=== PATIENT | male | born 1990 | race Caucasian/White ===

== ENCOUNTER 2018-04-22 09:56 | Emergency (ER) | payer OTHER ==
[~2018-04-22] VITALS: Wt 129.2 kg
[~2018-04-22 09:56] MED LIST: AZIT250T PO; BACTDS PO; CEPH-443 PO; CLIN300C10 PO; DOCU-144 PO; DOXY100T21 PO; ERYT250T55 PO; PSYL PO
--- NOTE | 2018-04-22 10:51 | ERD ---
ER Documentation Chief Complaint Chief Complaint EPIGASTRIC PAIN,GERD, SINCE YESTERDAY AFTER SPICY FOOD HPI 28-year-old male, producing healthy, presents the emergency department, complaining of 3 days with persistent burning epigastric pain after eating spicy food. The patient has tried some [id number] medication without im provement of the symptoms. He denies fevers, no chills, no nausea or vomiting, no diarrhea or constipation. ROS All systems reviewed and are negative except as per history of present illness. Medications Home Meds Active Scripts Hydrocodone/Acetaminophen ([place] 5-325 Tablet) 1 Each Tablet, 1 TAB PO BID PRN for PAIN for 3 Days, #6 TAB Prov:CLARIBEL SILVA MD 04/22/18 Ranitidine Hcl* (Zantac*) 150 Mg Tablet, 150 MG PO BID PRN for EPIGASTRIC PAIN, #14 TAB Prov:CLARIBEL SILVA MD 04/22/18 Amoxicillin/Potassium Clav (Amox-Clav 875-125 mg Tablet) 875-125 mg Tab, 1 TAB PO BID, #14 TAB Prov:CLARIBEL SILVA MD 04/22/18 Azithromycin* (Zithromax*) 250 Mg Tablet, 250 MG PO .ZPACK DIRECTED, #6 TAB TAKE 500 MG (2 TABS) THE FIRST DAY THEN 250 MG (1 TAB) DAYS 2-5 Prov:TARIK PANCHAL 03/13/16 Docusate Sodium* (Colace*) 100 Mg Capsule, 100 MG PO BID, #30 CAP Prov:NOAM ALBERT PA-C 10/24/15 Psyllium Husk (with sugar) (Metamucil Powder) 2,730 Gm Powder, 2730 GM PO BID, #1 EA Prov:NOAM ALBERT PA-C 10/24/15 Doxycycline Monohydrate* (Doxycycline Monohydrate*) 100 Mg Tablet, 100 MG PO BID, #7 TAB Prov:SANTOS WHITNEY PA-C 08/30/15 Sulfamethoxazole-Trimethoprim* (Bactrim* DS) 800-160 Mg Tab, 1 TAB PO BID for 7 Days, TAB Prov:NOAM ALBERT PA-C 08/27/15 Cephalexin* (Keflex*) 500 Mg Capsule, 500 MG PO QID for 7 Days, CAP Prov:NOAM ALBERT PA-C 08/27/15 Erythromycin Stearate (Erythromycin Stearate) 250 Mg Tablet, 250 MG PO QID for 10 Days, TAB Prov:ALFREDO CURRIE NP 07/15/15 Clindamycin Hcl* (Clindamycin Hcl*) 300 Mg Capsule, 300 MG PO TID for 10 Days, CAP Prov:JUAN F MOORE 05/02/15 Cephalexin* (Keflex*) 500 Mg Capsule, 500 MG PO QID for 7 Days, CAP Prov:VINICIO DOUGLAS PA-C 03/15/15 Sulfamethoxazole-Trimethoprim* (Bactrim* DS) 800-160 Mg Tab, 1 TAB PO BID for 7 Days, TAB Prov:VINICIO DOUGLAS PA-C 03/15/15 Allergies Allergies: Coded Allergies: No Known Allergy (Unverified , 03/13/16) PMhx/Soc History of Surgery: No Anesthesia Reaction: No Hx Neurological Disorder: No Hx Respiratory Disorders: No Hx Cardiac Disorders: No Hx Psychiatric Problems: No Hx Miscellaneous Medical Probl: No Hx Alcohol Use: Yes (SOCIALLY) Hx Substance Use: No Hx Tobacco Use: No FmHx Family History: diabetes Physical Exam Vitals Vital Signs Date Temp Pulse Resp B/P (MAP) Pulse Ox O2 O2 Flow FiO2 Time Delivery Rate 04/22/18 100.4 100 18 120/73 18 Room Air 16:12 (89) 04/22/18 98.2 76 18 135/75 99 09:57 (95) Physical Exam Const: No acute distress Head: Atraumatic Eyes: Normal Conjunctiva ENT: Normal External Ears, Nose and Mouth. Neck: Full range of motion. No meningismus. Resp: Clear to auscultation bilaterally Cardio: Regular rate and rhythm, no murmurs Abd: Soft, non tender, non distended. Normal bowel sounds Skin: No petechiae or rashes Back: No midline or flank tenderness Ext: No cyanosis, or edema Neur: Awake and alert Psych: Normal Mood and Affect Result Diagram: 04/22/18 1114 04/22/18 1114 Results 24 hrs Laboratory Tests Test 04/22/18 11:09 04/22/18 11:14 04/22/18 14:46 Bedside Urine pH (LAB) 6.0 Bedside Urine Protein (LAB) 1+ Bedside Urine Glucose (UA) Negative Bedside Urine Ketones (LAB) 2+ Bedside Urine Blood Negative Bedside Urine Nitrite (LAB) Negative Bedside Urine Leukocyte Esterase Negative (L White Blood Count 13.0 10^3/ul Red Blood Count 5.48 10^6/ul Hemoglobin 16.7 g/dl Hematocrit 49.4 % Mean Corpuscular Volume 90.1 fl Mean Corpuscular Hemoglobin 30.5 pg Mean Corpuscular 33.8 g/dl Hemoglobin Concent Red Cell Distribution Width 13.0 % Platelet Count 193 10^3/UL Mean Platelet Volume 10.6 fl Immature Granulocytes % 0.300 % Neutrophils % 58.9 % Lymphocytes % 32.2 % Monocytes % 7.0 % Eosinophils % 1.1 % Basophils % 0.5 % Nucleated Red Blood Cells % 0.0 /100WBC Immature Granulocytes # 0.040 10^3/ul Neutrophils # 7.6 10^3/ul Lymphocytes # 4.2 10^3/ul Monocytes # 0.9 10^3/ul Eosinophils # 0.1 10^3/ul Basophils # 0.1 10^3/ul Nucleated Red Blood Cells # 0.0 10^3/ul Sodium Level 144 mmol/L Potassium Level 4.2 mmol/L Chloride Level 100 mmol/L Carbon Dioxide Level 31 mmol/L Anion Gap 13 Blood Urea Nitrogen 15 mg/dl Creatinine 0.83 mg/dl Est Glomerular Filtrat Rate mL/min > 60 mL/min Glucose Level 112 mg/dl Calcium Level 9.9 mg/dl Total Bilirubin 2.3 mg/dl Direct Bilirubin 0.00 mg/dl Indirect Bilirubin 2.3 mg/dl Aspartate Amino Transf (AST/SGOT) 167 IU/L Alanine 408 IU/L Aminotransferase (ALT/SGPT) Alkaline Phosphatase 103 IU/L Total Protein 7.8 g/dl Albumin 4.8 g/dl Globulin 3.00 g/dl Albumin/Globulin Ratio 1.60 Lipase 1210 U/L 789 U/L Current Medications Medications Dose Sig/Romulo Start Time Status Last (Trade) Ordered Route PRN Stop Time Admin Dose Reason Admin 650 mg ONCE ONCE 04/22/18 DC 04/22/18 Acetaminophen PO 11:00 11:17 (Tylenol 04/22/18 11:01 Tab) Famotidine 20 mg ONCE ONCE 04/22/18 DC 04/22/18 (Pepcid) PO 11:00 11:17 04/22/18 11:01 Piperacillin 100 ml @ ONCE ONCE 04/22/18 DC 04/22/18 Sod/ 200 mls/hr IVPB 12:30 12:41 Tazobactam 04/22/18 12:59 Sod Sodium 1,000 ml @ Q1H ONCE 04/22/18 DC 04/22/18 Chloride 1,000 mls/hr IV 12:30 12:41 04/22/18 13:29 Iohexol 150 ml STK-MED 04/22/18 DC 04/22/18 (Omnipaque ONCE .ROUTE 12:50 13:04 300mg/ ml) 04/22/18 12:51 Sodium 100 ml @ ud STK-MED 04/22/18 DC 04/22/18 Chloride ONCE .ROUTE 12:50 13:04 04/22/18 12:51 IV Flush 10 ml STK-MED 04/22/18 DC 04/22/18 (NS 10 ml) ONCE .ROUTE 12:50 13:04 04/22/18 12:51 Sodium 1,000 ml @ Q1H ONCE 04/22/18 DC 04/22/18 Chloride 1,000 mls/hr IV 14:00 13:54 04/22/18 14:59 DIAGNOSTIC IMAGING REPORT Patient: TERRY NASSAR : 1990 Age: 28 Sex: M MR #: [id number] DOS: 04/22/18 1219 Ordering MD: CLARIBEL SILVA MD Location: [facility] Room/Bed: PROCEDURE: CT Abdomen and pelvis with contrast. CLINICAL INDICATION: Pancreatitis. Abdominal pain. TECHNIQUE: CT scan of the abdomen and pelvis with contrast was performed on a multidetector high-resolution CT scan. The patient was scanned following the uncomplicated intravenous administration of 90 ml Omnipaque-300. Coronal and sagittal reformatted images were obtained from the axial source images. Standard CT of the abdomen pelvis with contrast protocols were performed. The total exam CTDI equals 23.89 mGy and the total exam DLP equals 1646.93 mGy- cm. One or more of the following dose reduction techniques were used: - Automated exposure control. - Adjustment of the mA and/or kV according to patient size. Use of iterative reconstruction technique. Dicom images are available COMPARISON: None. FINDINGS: The pancreas is diffusely enlarged with indistinctness of the pancreatic margins and mild to moderate peripancreatic induration/stranding with fluid extending into the right and left anterior pararenal spaces and posterior mesentery caudal to the level the pancreas consistent with acute pancreatitis. No focal pancreatic lesion. No pancreatic duct dilation. Small free fluid posterior to the urinary bladder. Negative for localized fluid collection to suggest abscess. Negative free air. Prominent but nonspecific left periaortic and right mesenteric lymph nodes. No abdominal/pelvic lymphadenopathy. Numerous gallstones within a partially contracted gallbladder. No definite gallbladder wall thickening or pericholecystic fluid. No biliary ductal dilation. Normal size liver with diffuse hepatic fatty infiltration but no focal hepatic lesions. Spleen and adrenal glands are unremarkable. Kidneys are normal in size without calcified calculi, hydronephrosis or intra renal masses bilaterally. No evidence of ureteral calcified calculi or dilatation. Contracted otherwise unremarkable urinary bladder. Prostate unremarkable. Stomach large bowel and appendix unremarkable. Short segment prominent fluid filled loops of small bowel in the central mid to lower right abdomen consistent with ileus. Small bowel otherwise unremarkable. Mild bibasilar subsegmental atelectasis. Aorta unremarkable. Abdominal pelvic wall unremarkable. Osseous structures unremarkable without acute osseous findings are osteoblastic/osteolytic lesions. IMPRESSION: 1. Acute pancreatitis as described above. No pancreatic focal lesion or duct dilation demonstrated. 2. Numerous gallstones and a partially contracted gallbladder without gallbladder wall thickening, pericholecystic fluid or biliary ductal dilation. 3. Small free fluid posterior to the urinary bladder. Negative free air abscesses or lymphadenopathy. 4. Hepatic fatty infiltration. 5. No gastrointestinal disease. 6. No calcified urinary calculi or obstructive uropathy. RPTAT:AAJJ Physician [place] Date Time Electronically viewed and signed by Physician [place] on 04/22/2018 13:16 BM/ CC: CLARIBEL SILVA MD [id number] DIAGNOSTIC IMAGING REPORT Patient: TERRY NASSAR : 1990 Age: 28 Sex: M MR #: [id number] DOS: 04/22/18 1219 Ordering MD: CLARIBEL SILVA MD Location: [facility] Room/Bed: PROCEDURE: US Abdomen. CLINICAL INDICATION: Pancreatitis TECHNIQUE: Multiple real-time images were acquired of the patient's abdomen and retroperitoneum utilizing a high resolution transducer. COMPARISON: None FINDINGS: The liver is of normal size and contour with no mass or intrahepatic ductal dilatation. There is fatty infiltration. Portal and hepatic vein are patent on color flow Doppler imaging. The common bile duct measures 3.8 millimeter in transverse diameter. multiple gallstones are identified within the contracted gallbladder. Gallbladder wall is not thickened and no abnormal pericholecystic fluid collection is seen. No sonographic Oswald's sign was elicited during this exam. There is no ascites. The pancreas is not well visualized. The right kidney measures 12.3 cm in length. No hydronephrosis, calculus or mass is present. There is no evidence of abdominal aortic aneurysm or caval thrombosis. IMPRESSION: Multiple stones within the contracted gallbladder. No evidence of cholecystitis or biliary obstruction. Poor visualization of pancreas. .Daryl Hyde MD, MD Date Time Electronically viewed and signed by .Daryl Hyde MD, MD on 04/22/2018 13:55 .A/ CC: CLARIBEL SILVA MD [phone] Procedures/MDM Vital signs stable. Differential diagnosis include but not limited to: UTI, colitis, gastroenteritis, kidney stones, irritable bowel syndrome, inflammatory bowel syndrome, malabsorption syndrome, cholelithiasis, food intolerance, medication side effect, pancreatitis, diverticulitis, bowel obstruction. Physical examination and clinical presentation consistent most likely with mild acute gallstones pancreatitis. During the ED course the patient remained stable, no new complaints. The patient received aggressive treatment with treatment with IV fluids and IV medications presenting overall improvement of the symptoms, the lipase decreased and the CT and the ultrasound were negative for obstruction, therefore, the patient and the mother opted for conservative management outpatient and return in 48 hours for follow-up. Results and clinical impression discussed with the patient who agrees with management. Medical decision making shared with patient and family. The patient is stable to be treated outpatient and will be discharged home; some side effects of prescribed medications (headache, rash, nausea, vomiting, diarrhea, drowsiness, habituation, bleeding, hypertension, interactions with other medications) were reviewed. Follow up with the primary care provider in the next 48h is recommended. If symptoms persist, worsen or new symptoms develop, then patient should return to the ED immediately. Instructions explained and given directly by me to the patient with acknowledgment and demonstrated understanding. Disclaimer: Inadvertent spelling and grammatical errors are likely due to EHR/dictation software use and do not reflect on the overall quality of patient care. Also, please note that the electronic time recorded on this note does not necessarily reflect the actual time of the patient encounter. Departure Diagnosis: Primary Impression: Gallstone pancreatitis Condition: Stable Patient Instructions: Understanding Pancreatitis Additional Instructions: Thank you very much for allowing us to participate in your care. Your health and safety is our top priority at [facility]. Call your primary care doctor TOMORROW for an appointment during the next 2-4 days and bring all the information and medications prescribed. Have prescriptions filled and follow precisely the directions on the label. If the symptoms get worse and your provider is unavailable, return to the [facility] immediately. CLARIBEL SILVA MD Apr 22, 2018 10:51
[2018-04-22] MEDS ORDERED: FAMOTIDINE 20 MG TAB PO ONE (11:00)
[2018-04-22] MEDS ORDERED: ACETAMINOPHEN 325 MG TAB PO ONE (11:00)
[2018-04-22] MEDS ORDERED: PIPER-TAZO 3.375 GM IV (PMX) 100 ML IVPB ONE (12:30)
[2018-04-22] MEDS ORDERED: SOD CHLORIDE 0.9% 1,000 ML IV ONE ×2 (12:30→14:00)
[2018-04-22] MEDS ORDERED: SOD CHLORIDE 0.9% 100 ML ONE (12:50)
[2018-04-22] MEDS ORDERED: IOHEXOL 300MG/ML 150 ML BTL ONE (12:50)
[2018-04-22] MEDS ORDERED: RANI150T35 PO (15:46)
[2018-04-22] MEDS ORDERED: HYDR-4011 PO (15:46)
[2018-04-22] MEDS ORDERED: AMOX1TAB10 PO (15:46)
[2018-04-22 16:12] VITALS: BP 120/73; PULSE 100; RESP 18
== END 2018-04-22 16:22 | disposition home or self-care (01) ==
LOC: FTE 09:56
DX: K85.10 Biliary acute pancreatitis without necrosis or infection (principal)
CPT/HCPCS: 36415; 74177; 76705; 80053; 81003; 83690; 85025; 96365; J2543; J7030; Q9967; Z7502; Z7610

== ENCOUNTER 2018-04-24 09:22 | Emergency (ER) | payer OTHER ==
[~2018-04-24] VITALS: Wt 129.0 kg
[~2018-04-24 09:22] MED LIST changes: +AMOX1TAB10 PO; +HYDR-4011 PO; +RANI150T35 PO
[2018-04-24 09:25] VITALS: BP 131/75; PULSE 96; RESP 16
--- NOTE | 2018-04-24 11:12 | ERD ---
ER Documentation Chief Complaint Chief Complaint PT HERE FOR RECHECK ON ABD PAIN, RECENT DX OF PANCREATITIS HPI 28-year-old male patient with a past medical history of calcific otitis presents to the ED for reexamination of the abdomen. Patient reports that he has no abdominal pain. She reports that he was told to come back to the ED in 2 days for repeat blood work. Patient reports that he has been taking Augmentin consistently. States that he has not had to take his [place] prescribed for his pain. Rates his pain is 0 out of 10. Patient states that he is eating appropriately, tolerating oral intake, has normal bowel movements and good urinary output. ROS All systems reviewed and are negative except as per history of present illness. Medications Home Meds Active Scripts Hydrocodone/Acetaminophen ([place] 5-325 Tablet) 1 Each Tablet, 1 TAB PO BID PRN for PAIN for 3 Days, #6 TAB Prov:CLARIBEL SILVA MD 04/22/18 Ranitidine Hcl* (Zantac*) 150 Mg Tablet, 150 MG PO BID PRN for EPIGASTRIC PAIN, #14 TAB Prov:CLARIBEL SILVA MD 04/22/18 Amoxicillin/Potassium Clav (Amox-Clav 875-125 mg Tablet) 875-125 mg Tab, 1 TAB PO BID, #14 TAB Prov:CLARIBEL SILVA MD 04/22/18 Azithromycin* (Zithromax*) 250 Mg Tablet, 250 MG PO .ZPACK DIRECTED, #6 TAB TAKE 500 MG (2 TABS) THE FIRST DAY THEN 250 MG (1 TAB) DAYS 2-5 Prov:TARIK PANCHAL 03/13/16 Docusate Sodium* (Colace*) 100 Mg Capsule, 100 MG PO BID, #30 CAP Prov:NOAM ALBERT PA-C 10/24/15 Psyllium Husk (with sugar) (Metamucil Powder) 2,730 Gm Powder, 2730 GM PO BID, #1 EA Prov:NOAM ALBERT PA-C 10/24/15 Doxycycline Monohydrate* (Doxycycline Monohydrate*) 100 Mg Tablet, 100 MG PO BID, #7 TAB Prov:SANTOS WHITNEY PA-C 08/30/15 Sulfamethoxazole-Trimethoprim* (Bactrim* DS) 800-160 Mg Tab, 1 TAB PO BID for 7 Days, TAB Prov:NOAM ALBERT PA-C 08/27/15 Cephalexin* (Keflex*) 500 Mg Capsule, 500 MG PO QID for 7 Days, CAP Prov:NOAM ALBERT PA-C 08/27/15 Erythromycin Stearate (Erythromycin Stearate) 250 Mg Tablet, 250 MG PO QID for 10 Days, TAB Prov:ALFREDO CURRIE NP 07/15/15 Clindamycin Hcl* (Clindamycin Hcl*) 300 Mg Capsule, 300 MG PO TID for 10 Days, CAP Prov:JUAN F MOORE DO 05/02/15 Cephalexin* (Keflex*) 500 Mg Capsule, 500 MG PO QID for 7 Days, CAP Prov:VINICIO DOUGLAS PA-C 03/15/15 Sulfamethoxazole-Trimethoprim* (Bactrim* DS) 800-160 Mg Tab, 1 TAB PO BID for 7 Days, TAB Prov:VINICIO DOUGLAS PA-C 03/15/15 Allergies Allergies: Coded Allergies: No Known Allergy (Unverified , 03/13/16) PMhx/Soc Medical and Surgical Hx: pt denies Medical Hx, pt denies Surgical Hx History of Surgery: No Anesthesia Reaction: No Hx Neurological Disorder: No Hx Respiratory Disorders: No Hx Cardiac Disorders: No Hx Psychiatric Problems: No Hx Miscellaneous Medical Probl: No Hx Alcohol Use: Yes (SOCIALLY) Hx Substance Use: No Hx Tobacco Use: No FmHx Family History: No diabetes, No coronary disease Physical Exam Vitals Vital Signs Date Temp Pulse Resp B/P (MAP) Pulse Ox O2 O2 Flow FiO2 Time Delivery Rate 04/24/18 98.3 96 16 131/75 98 09:25 (93) Physical Exam Const: [id number], well-nourished. In no acute distress. Head: Atraumatic, normocephalic Eyes: Normal Conjunctiva without injection. No purulent discharge. ENT: Normal external ear, nose. Moist oropharynx without tonsillar exudates. Non-erythematous pharynx. Uvula midline. No drooling. No trismus. Neck: No cervical midline tenderness. Full range of motion. No meningismus. No cervical lymphadenopathy. No JVD. Resp: Clear to auscultation bilaterally. No wheezing, rhonchi, rales, or crackles. No accessory muscle use. No retractions. Cardio: Regular rate and rhythm. No murmurs, rubs or gallops. Abd: Soft, nontender, non distended. Normal bowel sounds. No palpable masses. No rebound tenderness. No guarding. Negative McBurney's point. Negative psoas sign. Negative obturator sign. Skin: No petechiae or rashes Back: No midline tenderness. No CVA tenderness. Ext: No cyanosis, or edema. Neur: Awake and alert. Normal gait. Normal coordination. Psych: Normal Mood and Affect Result Diagram: 04/24/1853 04/24/1853 Results 24 hrs Laboratory Tests Test 04/24/18 09:53 White Blood Count 9.8 10^3/ul Red Blood Count 5.16 10^6/ul Hemoglobin 15.5 g/dl Hematocrit 46.1 % Mean Corpuscular Volume 89.3 fl Mean Corpuscular Hemoglobin 30.0 pg Mean Corpuscular Hemoglobin Concent 33.6 g/dl Red Cell Distribution Width 12.3 % Platelet Count 182 10^3/UL Mean Platelet Volume 10.5 fl Immature Granulocytes % 0.300 % Neutrophils % 58.3 % Lymphocytes % 29.6 % Monocytes % 7.4 % Eosinophils % 3.8 % Basophils % 0.6 % Nucleated Red Blood Cells % 0.0 /100WBC Immature Granulocytes # 0.030 10^3/ul Neutrophils # 5.7 10^3/ul Lymphocytes # 2.9 10^3/ul Monocytes # 0.7 10^3/ul Eosinophils # 0.4 10^3/ul Basophils # 0.1 10^3/ul Nucleated Red Blood Cells # 0.0 10^3/ul Sodium Level 140 mmol/L Potassium Level 4.3 mmol/L Chloride Level 103 mmol/L Carbon Dioxide Level 27 mmol/L Anion Gap 10 Blood Urea Nitrogen 13 mg/dl Creatinine 0.89 mg/dl Est Glomerular Filtrat Rate mL/min > 60 mL/min Glucose Level 132 mg/dl Calcium Level 9.7 mg/dl Total Bilirubin 1.3 mg/dl Direct Bilirubin 0.00 mg/dl Indirect Bilirubin 1.3 mg/dl Aspartate Amino Transf (AST/SGOT) 71 IU/L Alanine Aminotransferase (ALT/SGPT) 199 IU/L Alkaline Phosphatase 97 IU/L Total Protein 7.9 g/dl Albumin 4.6 g/dl Globulin 3.30 g/dl Albumin/Globulin Ratio 1.39 Lipase 156 U/L Procedures/MDM 28-year-old male patient resents to the ED for a reexamination of his abdomen due to recent diagnosis, 2 days ago for gallstone pancreatitis. Patient is afebrile and nontoxic-appearing. Patient was discussed with my supervising physician, Dr. Mcgee who agreed with the management and discharge plan. Patient was further worked up with CBC, CMP, lipase. CBC: No leukocytosis. No e/o of systemic infection. No e/o anemia. CMP: No e/o severe acidosis, alkalosis, renal failure, diabetic ketoacidosis, liver disease Lipase within normal limits. Lipase improved and now WNL. Patient is in no pain - states he feels better. Low suspicion for gallstone pancreatitis, testicular torsion, gastritis, GERD, peptic ulcer disease, cholecystitis, choledocholithiasis, cholangitis, pancreatitis, appendicitis, bowel obstruction, ileus, volvulus, nephrolithiasis, pyelonephritis, hepatitis, perforated viscus, diverticulitis, abdominal hernia, acute abdomen, mesenteric ischemia or other emergent conditions. Diagnosis: Laboratory Examination Discharge medications: Continue taking antibiotics as prescribed. Follow up with primary care physician in 1-2 days. Instructed patient to return to the ED sooner for any worsening symptoms. Patient's questions were answered. Patient is hemodynamically stable. Patient understood and agreed with discharge plan. Patient discharged stable. Disclaimer: Inadvertent spelling and grammatical errors are likely due to EHR/dictation software use and do not reflect on the overall quality of patient care. Also, please note that the electronic time recorded on this note does not necessarily reflect the actual time of the patient encounter. Departure Diagnosis: Primary Impression: Examination for, laboratory Condition: Stable Patient Instructions: Treating Gallstones Referrals: COMMUNITY CLINICS YOU HAVE RECEIVED A MEDICAL SCREENING EXAM AND THE RESULTS INDICATE THAT YOU DO NOT HAVE A CONDITION THAT REQUIRES URGENT TREATMENT IN THE EMERGENCY DEPARTMENT. FURTHER EVALUATION AND TREATMENT OF YOUR CONDITION CAN WAIT UNTIL YOU ARE SEEN IN YOUR DOCTORS OFFICE WITHIN THE NEXT 1-2 DAYS. IT IS YOUR RESPONSIBILITY TO MAKE AN APPOINTMENT FOR FOLOW-UP CARE. IF YOU HAVE A PRIMARY DOCTOR --you should call your primary doctor and schedule an appointment IF YOU DO NOT HAVE A PRIMARY DOCTOR YOU CAN CALL OUR PHYSICIAN REFERRAL HOTLINE AT IF YOU CAN NOT AFFORD TO SEE A PHYSICIAN YOU CAN CHOSE FROM THE FOLLOWING [facility] [address] [facility] [address] [facility] [address] [facility] [address] [facility] [address] [facility]. [facility] [address] [facility]. [facility] YOU HAVE RECEIVED A MEDICAL SCREENING EXAM AND THE RESULTS INDICATE THAT YOU DO NOT HAVE A CONDITION THAT REQUIRES URGENT TREATMENT IN THE EMERGENCY DEPARTMENT. FURTHER EVALUATION AND TREATMENT OF YOUR CONDITION CAN WAIT UNTIL YOU ARE SEEN IN YOUR DOCTORS OFFICE WITHIN THE NEXT 1-2 DAYS. IT IS YOUR RESPONSIBILITY TO MAKE AN APPOINTMENT FOR FOLOW-UP CARE. IF YOU HAVE A PRIMARY DOCTOR --you should call your primary doctor and schedule and appointment IF YOU DO NOT HAVE A PRIMARY DOCTOR YOU CAN CALL OUR PHYSICIAN REFERRAL HOTLINE AT . IF YOU CAN NOT AFFORD TO SEE A PHYSICIAN YOU CAN CHOSE FROM THE FOLLOWING [facility]: [facility] [address] [place] [address] [facility] [address] [place] [address] [facility] [address] [place] [address] [facility]SPECIALT[facility] Additional Instructions: Continue taking the antibiotics as written. Call your primary care doctor TOMORROW for an appointment during the next 2-3 days.See the doctor sooner or return here if your condition worsens before your appointment time. LISA PIRES PA-C Apr 24, 2018 11:12
== END 2018-04-24 11:04 | disposition home or self-care (01) ==
LOC: FTE 09:22
DX: Z00.00 Encounter for general adult medical examination without abnormal findings (principal)
CPT/HCPCS: 36415; 80053; 83690; 85025; Z7502; 99283